=== PATIENT | male | born 1995 | race Hispanic/Latino ===

== ENCOUNTER 2017-08-19 14:50 | Emergency (ER) | payer OTHER ==
[2017-08-19 14:56] VITALS: BP 129/80; PULSE 82; RESP 16; TEMP 98.5; O2SAT 98
== END 2017-08-19 14:52 | disposition left against medical advice (07) ==
LOC: H.ER 14:50
DX: Z02.89 Encounter for other administrative examinations (principal)

== ENCOUNTER 2018-01-24 07:25 | Emergency (ER) | payer OTHER ==
[2018-01-24 07:32] VITALS: BMI 23.6
[2018-01-24] MEDS ORDERED: Sodium Chloride 0.9% 1,000 ML IV STA (08:13)
[2018-01-24] MEDS ORDERED: cefTRIAXone (Rocephin) 1 gm Inj ONE (08:31)
--- NOTE | 2018-01-24 08:55 | ED PDOC ---
HPI: CCC, URI, Sore Throat Time Seen by Provider: 01/24/18 08:00 Chief Complaint (Nursing): ENT Problem History Per: Patient Ivory presents to the ER with c/o persistent throat pain and fever for the past 2 days despite 4 doses of Omnicef (2 BID). He was diagnosed with strep pharyngitis via rapid strep test at a local urgent care center. He has pain on swallowing and pain in the neck, especially on the left side. Of note is that he was treated for strep 20 days earlier with Augmentin. He is concerned about bacterial resistance.) History/Exam Limitations: no limitations Past Medical History Reviewed: Historical Data, Nursing Documentation, Vital Signs Vital Signs: Last Vital Signs Temp 99.8 F H 01/24/18 07:30 Pulse 103 H 01/24/18 07:30 Resp 20 01/24/18 07:30 BP 121/67 01/24/18 07:30 Pulse Ox 96 01/24/18 07:30 - Medical History PMH: No Chronic Diseases, Sexually Transmitted Disease (Gonorrhea) - Surgical History Surgical History: No Surg Hx - Family History Family History: States: No Known Family Hx - Living Arrangements Living Arrangements: With Friends/Others - Social History Current smoker - smoking cessation education provided: No - Immunization History Hx Tetanus Toxoid Vaccination: Yes - Home Medications Home Medications: Ambulatory Orders Medication Instructions Recorded Ketorolac Tromethamine [Toradol] 10 mg PO Q6H PRN #19 tab 01/24/18 Lidocaine 2% Viscous 10 ml MM Q4H PRN #1 bottle 01/24/18 - Allergies Allergies/Adverse Reactions: Allergies Allergy/AdvReac Type Severity Reaction Status Date / Time No Known Allergies Allergy Verified 01/24/18 08:10 Review of Systems ROS Statement: Except As Marked, All Systems Reviewed And Found Negative Constitutional: Positive for: Fever ENT: Positive for: Throat Pain. Negative for: Ear Pain Cardiovascular: Negative for: Chest Pain Respiratory: Negative for: Cough, Shortness of Breath Gastrointestinal: Negative for: Nausea, Vomiting Musculoskeletal: Positive for: Neck Pain (left side) Neurological: Negative for: Weakness, Numbness, Change in Speech, Altered Mental Status, Headache - Laboratory Results Result Diagrams: 01/24/18 08:31 01/24/18 08:31 - ECG O2 Sat by Pulse Oximetry: 96 - Radiology X-Ray: Read By Radiologist X-Ray Interpretation: No Acute Disease - Progress Re-evaluation Time: 12:00 Condition: Improved Medical Decision Making Medical Decision Making: continue antibiotics. Lidocaine and Toradol PO for pain. Disposition - Clinical Impression Clinical Impression: Streptococcal sore throat - Patient ED Disposition Is Patient to be Admitted: No Doctor Will See Patient In The: Office Counseled Patient/Family Regarding: Diagnosis, Need For Followup, Rx Given - Disposition Referrals: [facility] [Outside] Disposition: Routine/Home Disposition Time: 12:40 Condition: IMPROVED Additional Instructions: Continue current antibiotics. Take new medications for symptoms as directed. Prescriptions: Ketorolac Tromethamine [Toradol] 10 mg PO Q6H PRN #19 tab PRN Reason: Pain, Moderate (4-7) Lidocaine 2% Viscous 10 ml MM Q4H PRN #1 bottle PRN Reason: Sore Throat Forms: [employer] ([place]ian) - POA Present On Arrival: None
[2018-01-24 09:15] LABS: BASO % 0.3 % (0.0-2.0); EOS # 0.1 K/uL (0.0-0.7); EOS % 1.6 % (0.0-4.0); HEMOGLOBIN 12.9 g/dL (12.0-18.0); LYMPH # 1.4 K/uL (1.0-4.3); LYMPH % 15.3 % (20.0-40.0); MEAN CELL VOLUME 80.8 fl (80.0-94.0); MEAN CORPUSCULAR HGB CONC 33.4 g/dL (33.0-37.0); MEAN PLATELET VOLUME 9.3 fl (7.2-11.7); MONO # 1.3 K/uL (0.0-0.8); MONO % 14.8 % (0.0-10.0); NEUT # 6.2 K/uL (1.8-7.0); RBC 4.79 Mil/uL (4.40-5.90); RED CELL DISTRIBUTION WIDTH 13.3 % (11.5-14.5); WHITE BLOOD COUNT 9.1 K/uL (4.8-10.8)
[2018-01-24 09:30] LABS: BLOOD UREA NITROGEN 15 mg/dl (9-20); CALCIUM 9.2 mg/dL (8.4-10.2); GFR NON-AFRICAN AMERICAN > 60
[2018-01-24] MEDS ORDERED: Iohexol 300 100 ML IJ ONE (10:26)
[2018-01-24] MEDS ORDERED: Sodium Chloride 0.9% 50 ML IV ONE (10:26)
--- NOTE | 2018-01-24 12:35 | CT ---
Date of service: 01/24/2018 PROCEDURE: CT NECK WITH CONTRAST HISTORY: persisten pain despite abx for strep pharyngitis COMPARISON: None available. TECHNIQUE: CT of the neck with intravenous contrast. Coronal and sagittal reformats generated. Intravenous contrast dose: 90 mL Omnipaque 300 Radiation dose: Total exam DLP = 279.12 mGy-cm. This CT exam was performed using one or more of the following dose reduction techniques: Automated exposure control, adjustment of the mA and/or kV according to patient size, and/or use of iterative reconstruction technique. FINDINGS: NASOPHARYNX: Within normal limits. SUPRAHYOID NECK: There is mild enlargement of the palatine tonsils without evidence for peritonsillar abscess. There is no mass or abnormal enhancement in the oropharynx, oral cavity, parapharyngeal space and retropharyngeal space. INFRAHYOID NECK: There is no mass or abnormal enhancement in the larynx, hypopharynx, and supraglottic space. Vocal cords intact. GLANDS: Parotid and submandibular glands unremarkable. Normal size thyroid gland, without nodule. LYMPH NODES: There are bilateral enlarged submandibular lymph nodes. CERVICAL SPINE: No fracture or focal lesion. VASCULAR STRUCTURES: Unremarkable. OTHER FINDINGS: Visualized lungs are clear. There is a retention cyst/polyp in the right maxillary sinus. IMPRESSION: 1. Bilateral mildly enlarged palatine tonsils without evidence for peritonsillar abscess. 2. Bilateral enlarged submandibular lymph nodes are nonspecific and may be reactive, infectious or inflammatory in etiology. Clinical follow-up is advised.
[2018-01-24 13:16] VITALS: BP 116/73; PULSE 78; RESP 16; TEMP 98.3; O2SAT 99
== END 2018-01-24 13:11 | disposition home or self-care (01) ==
LOC: H.ER 07:25
DX: J02.0 Streptococcal pharyngitis (principal)
CPT/HCPCS: 70491; 80048; 85025; 85651; 87040; 87070; 96365; 96375; 99285; J0696; J1885; J7030; Q9967